=== PATIENT | male | born 1945 | race Caucasian/White ===

== ENCOUNTER 2020-09-19 13:42 | Outpatient (REF) | payer MEDICARE, SELFPAY ==
--- NOTE | 2020-09-19 15:34 | MHC.AU.HAS ---
Hearing Aid Evaluation Date of Visit: 09/19/20 Historical Information: Description of Hearing: Normal hearing from 250-2000 Hz, steeply sloping to a mild to severe sensorineural hearing loss from 6761-5043 Hz bilaterally. Very bothersome tinnitus bilaterally. Summary: Patient was seen by Dr. Boo on 09/09/2020 and binaural amplification was recommended to facilitate improved communication and provide tinnitus relief. Discussed options with Mr. Gonzalez today and he is interested in ALYSIA style hearing aids with standard batteries. Hearing Aid Prescription: Based on the individual?s shared listening needs, communication environments, dexterity, desire for connectivity, and personal preferences, the following prescription for amplification has been made: Right ear: Hydraulic Plumber Helper: Phonak Model: Audeo P70-13T Battery Size: 13 Color: P5- Champagne Microfilm Technician: Size 0 M Type of Dome: Open Left ear: Left ear prescription to be same as Right Hearing Aid above: Hydraulic Plumber Helper: Phonak Model: Audeo P70-13T Battery Size: 13 Color: P5- Champagne Microfilm Technician: Size 0 M Type of Dome: Open Plan of Care: Prior authorization to be requested from [facility]. Hearing Fitting to be scheduled when materials arrive Primary Diagnosis: H90.3 Bilateral Sensorineural Hearing Loss Secondary Diagnosis: H93.13 Tinnitus, Bilateral Signature: Provider: Gustavo Slater, ALFONSO-A
== END 2020-09-19 13:43 | disposition home or self-care (01) ==
LOC: HO.HAP 13:42
PROVIDERS: Visit Provider Internal Medicine Pulmonary Disease
DX: Z46.1 Encounter for fitting and adjustment of hearing aid (principal); H90.3 Sensorineural hearing loss, bilateral; H93.13 Tinnitus, bilateral
CPT/HCPCS: 92591

== ENCOUNTER 2020-10-29 13:49 | Outpatient (REF) | payer MEDICARE, SELFPAY | END 2020-10-29 13:50 | disposition home or self-care (01) | LOC: HO.HAP 13:49 | PROVIDERS: Visit Provider Internal Medicine Pulmonary Disease | DX: Z46.1 Encounter for fitting and adjustment of hearing aid (principal); H90.3 Sensorineural hearing loss, bilateral | CPT/HCPCS: V5011; V5020; V5160; V5261; V5266 ==

== ENCOUNTER 2020-11-14 13:52 | Outpatient (REF) | payer MEDICARE, SELFPAY | END 2020-11-14 13:53 | disposition home or self-care (01) | LOC: HO.HAP 13:52 | PROVIDERS: Visit Provider Internal Medicine Pulmonary Disease | DX: Z13.89 Encounter for screening for other disorder (principal) ==

== ENCOUNTER 2021-03-25 12:22 | Outpatient (REF) | payer MEDICARE, SELFPAY | END 2021-03-25 12:23 | disposition home or self-care (01) | LOC: HO.HAP 12:22 | PROVIDERS: Visit Provider Internal Medicine Pulmonary Disease | DX: Z46.1 Encounter for fitting and adjustment of hearing aid (principal); H90.3 Sensorineural hearing loss, bilateral | CPT/HCPCS: V5266 ==

== ENCOUNTER 2021-04-07 09:35 | Outpatient (REF) | payer MEDICARE, SELFPAY ==
--- NOTE | 2021-04-07 09:55 | MHC.AU.P13 ---
Hearing Instrument Maintenance Date of Visit: 04/07/21 Right Ear: Grooving Lathe Tender: Phonak Model: Audeo P70-13T Serial Number: [id number] Repair Warranty: 12/30/2023 Loss and Damage Warranty: 12/30/2023 Battery Size: 13 Color: P5- Champagne Gifted Teacher: Size 0 M Type of Dome: Small open Type of Wax Guard: Cerushield Dispensed By: [facility] Date of Fittin10/29/2020 Left Ear: Grooving Lathe Tender: Phonak Model: Audeo P70-13T Serial Number: [id number] Repair Warranty: 12/30/2023 Loss and Damage Warranty: 12/30/2023 Battery Size: 13 Color: P5- Champagne Gifted Teacher: Size 0 M Type of Dome: Small open Type of Wax Guard: Cerushield Dispensed By: [facility] Date of Fittin10/29/2020 Follow-Up Summary: Hearing aids dropped off for cleaning. Cleaned aids and replaced small open domes, wax filters, and retention tails - both amplifying clearly. Recommendations: Recommendations: Hearing instrument follow-up or maintenance as needed. Diagnosis Code(s): Primary Diagnosis: H90.3 Bilateral Sensorineural Hearing Loss Signature: Provider: ALESSANDRO Kohler-HIS
== END 2021-04-07 09:36 | disposition home or self-care (01) ==
LOC: HO.HAP 09:35
PROVIDERS: PCP Internal Medicine; Visit Provider Internal Medicine
DX: Z13.89 Encounter for screening for other disorder (principal)

== ENCOUNTER 2024-08-08 12:59 | Outpatient (AMB) | payer MEDICARE, SELFPAY ==
--- NOTE | 2024-08-08 13:20 | MHC.PC.OV ---
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 Dermatopathologist Required: No Allergies No Known Allergies Allergy (Unverified 08/08/24 13:31) Medication List - Last Reconciled 08/08/24 by Sindi Romero, SENIOR JAVASCRIPT DEVELOPER- alfuzosin ER mg PO DAILY finasteride mg PO DAILY omega 8-zno-tix-fish oil 300-1,000 mg (Fish Oil) caps PO Tobacco use date assessed: 08/08/24 Fall risk assessment: No Falls in past year Last assessed Fall Risk: 08/08/24 Dental Screening Dental Screen Date: 08/08/24 Did you have a dental visit in the last 12 months?: Yes Did you have a dental problem in the last 6 months where you did not have access to dental care?: No Was dental information given to patient?: Patient has dentist HPI HPI Comments History of Present Illness Details 79 y/o M with headaches, bruising, PTSD, hx of lymphoma, chronic low back pain s/p injury age 35, heart murmur, psoriasis, PVD, former smoker SurgHx: L inguinal hernia repair, R shoulder surgery, appendectomy FHx: Social History - Lives alone, frequently engages in outdoor activities including albin chi, walking, bicycling, canoeing, and weightlifting at the [facility]. 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 - Prior smoker, quit approximately 20 years ago. Health Maintenance: See scanned preventative medicine assessment with personalized health plan and screening schedule. Colon: Vaccines AAA screen EKG: [place] of Care: Visual Acuity: wears glasses Hearing Screening: wears hearing aides ACP: Dietary/Nutrition/Exercise Edu provided: Y History of Present Illness - The patient is a 79-year-old male presenting to establish [facility]. previous pcp: marisela ibarra - no records avail His medical history includes managing Benign Prostatic Hyperplasia with finasteride and alfuzosin He reports concern over easy bruising appearing for the past year, taking omega 3 fish oil, denies any anti-coag or antiplatlet meds. denies overt bleeding. infrequent, resolves on its own. Historically significant, the patient had lymphoma surgically removed and treated with radiation, now in longstanding remission. Unclear if he is active with heme/onc. c/o new onset of lightheadedness - unsure when it started. denies syncope, collapse, shortness of breath, chest pain. Physically active lifestyle, including albin chi and other exercises, this does not trigger his lightheadedness. Heart murmur known for more than 40 years - not managed by Cards Psoriasis managed without topical treatment due to concerns about wildlife interaction. Occasional headache, takes NSAIDs + relief. Review of Systems - Skin: Reports psoriasis, easy bruising - Neurological: Reports intermittent lightheadedness - Cardiovascular: Reports history of heart murmur - Musculoskeletal: Reports prior knee injury resulting in occasional stiffness and pain - General: Denies recent significant health decline, expresses preference for non-medicalized end-of-life Exam Awake alert NAD PERRLA 2/6 murmur, RRR LS CTAB No edema BLE Varicose veins ble Psoriasis R knee (reports R buttock but not seen today) Discussion Notes During the visit, we discussed the patient's predominant health concerns, including the recent onset of easy bruising and intermittent lightheadedness. I advised suspending omega-3 fish oil intake to determine its relation to bruising, due to its known property of increasing bleeding risk. We discussed conducting blood tests to evaluate hematological factors that might explain the bruising and lightheadedness. The patient agreed to this interim management plan while suspending unnecessary medication unless confirmed otherwise by records or test findings. For the heart murmur, the historical context suggests a benign course, but I look forward to reviewed medical records. We ensured follow-up for ongoing health optimization and addressed logistical aspects regarding health systems' access to previous records. Upon leaving he handed me lab results done 07/19/[address] Sp Marmolejo CBC was WNL including platelet count, normal CMP, TC 201, TG 183, LDL 138, HDL 63 and labs from 06/04/23 which show abut the same These were reviewed after he left and after i ordered the below labs. unsure why these were given to me when talking about his health concerns. Assessment and Plan 1. Benign Prostatic Hyperplasia: Ongoing finasteride & alfusozin treatment maintained; review for symptom management aligned with subsequent medical records. 2. History of Lymphoma: Stable in remission with earlier surgical and radiotherapy intervention. Current symptoms reviewed, with further analysis held contingent on laboratory data. 3. Easy Bruising: Informed omega-3 suspension initiated to observe possible impact on bleeding propensity. Immediate lab tests requested to assess hematological formula integrity. 4. Lightheadedness: Potential multi-factorial, linked to exertion. Lab assessment to screen for anemia or systemic cause anticipated results decidedly influent to further dialogue. 5. Psoriasis: Previous self-managed approach continued due to content medical requirements for topical treatment non-negotiable conflicts with wildlife hands-on care. 6. Heart Murmur: Historic murmur likely benign; existing data adequate pending supplementary diagnostics, none prioritised without emergent signs. Patient Instructions - Avoid taking omega-3 fish oil supplements until the next appointment. - Observe any changes in bruising and lightheadedness. - Prepare to have blood tests performed today. - Schedule return appointment in 2-3 weeks for results review and further discussion. - Maintain active lifestyle according to comfort levels. - Seek medical attention if new significant bruising, worsening lightheadedness, or other acute symptoms occur. Consent Patient was informed and verbally consented to the use of an ambient scribe for clinic note documentation during this visit. Total time spent caring for the patient today was 50 minutes. This includes time spent before the visit reviewing the chart, time spent during the visit, and time spent after the visit on documentation, reviewing laboratory results, diagnostic imaging, medications, performing a medically necessary evaluation, counseling on diagnoses, care coordination, ordering appropriate tests, ordering appropriate medications, review of tests performed by other providers, reporting test results with the patient, communication with other healthcare providers. [facility] Medical History (Updated 08/08/24 @ 15:09 by Sindi Romero, [facility]) Arthritis GERD (gastroesophageal reflux disease) Hernia Lymphoma Prostate troubles Psoriasis PTSD (post-traumatic stress disorder) Spine disorder Surgical History (Updated 08/08/24 @ 13:34 by Bria Frank MA) History of appendectomy History of carpal tunnel surgery Family History (Updated 08/08/24 @ 13:35 by Bria Frank MA) Father Substance abuse Maternal Grandfather Substance abuse Sister Substance abuse Mother Mental health disorder Social History (Updated 08/08/24 @ 13:27 by Bria Frank MA) Household Members: None Housing: Other (mobile home) Housing Other:: mobile home Are you a primary skin care instructor to a significant other at home: No Do you presently have visiting nurse or other home services: Yes (once a year) Alcohol intake: current Alcohol intake frequency: a few times a month Patient Tobacco Use Status: Never used Tobacco e-Cigarette/Vaping Use: Never Used Second Hand Smoke Exposure: No service: No Current occupational status: retired Cognitive needs: No Hearing needs: Yes (hearing aid) Vision needs: Yes (wear glasses) Questionnaire PHQ-9 Over the last 2 weeks, how often have you been bothered by any of the following problems? 1. Little interest or pleasure in doing things: not at all 2. Feeling down, depressed, or hopeless: several days 3. Trouble falling or staying asleep, or sleeping too much: not at all 4. Feeling tired or having little energy: several days 5. Poor appetite or overeating: not at all 6. Feeling bad about yourself - or that you are a failure or have let yourself or your family down: several days 7. Trouble concentrating on things, such as reading the newspaper or watching television: not at all 8. Moving or speaking so slowly that other people could have noticed. Or the opposite - being so fidgety or restless that you have been moving around a lot more than usual: not at all 9. Thoughts that you would be better off or of hurting yourself in some way: not at all Total score: 3 Depression Screening Interpretation: Negative Depression Screening Done: Yes 10134 - PHQ-9 Billing: Yes Source: Developed by Drs. Sp Rodriguez, Kelsey Goins, Zion Hilario and colleagues, with an educational alfred from [employer]. Thrive Questionnaire Date Thrive assessed: 08/08/24 I am a: Patient What is your living situation today?: I have a steady place to live Within the past 12 months, did the food you bought not last and you didn't have the money to get more?: Never true Within the past 12 months, did you worry whether your food would run out before you got money to buy more?: Never true Do you have trouble paying for medicines?: No Do you have trouble getting transportation to medical appointments?: No Do you have trouble paying your heating and electricity bill?: No Do you have trouble taking care of your child, family member or friend?: No Do you have trouble with day-to-day activities such as bathing, preparing meals, shopping, managing finances, etc.?: No Are you currently unemployed and looking for a job?: I choose not to answer this question Are you interested in more education?: No Please select the resources that you would like help with: None Currently or been in a relationship where the following occur: Controlled Emotionally THRIVE Score: 1 AUDIT C Alcohol Use Questionnaire (AUDIT-C) 1. How often do you have a drink containing alcohol?: Never 3. How often do you have six or more drinks on one occasion?: Never Total Score: 0 Score Reviewed/Action Taken: Yes NISHANT-7 AMB Questionnaire NISHANT-7 Date NISHANT - 7 assessed: 08/08/24 Feeling nervous, anxious, or on edge: 1 = Several days Not being able to stop or control worryin = Several days Worrying too much about different things: 1 = Several days Trouble relaxin = Several days Being so restless that it is hard to sit still: 1 = Several days Becoming easily annoyed or irritable: 0 = Not at all Feeling afraid as if something awful might happen: 1 = Several days Total NISHANT-7 score (0-4 normal; 5-9 mild; 10-14 moderate; 15-21 severe): 6 Source: Developed by Drs. Sp Rodriguez, Kelsey Goins, Zion Hilario and colleagues, with an educational alfred from [employer]. NISHANT-7 Assessment Billing NISHANT-7 Assessment Tool: NISHANT-7 Assessment 68506 Physical exam (Primary Care) Vital Signs: Last Vital Signs Temp 96.9 F 08/08/24 13:27 Pulse 55 08/08/24 13:27 Resp 12 08/08/24 13:27 BP 117/66 08/08/24 13:27 Pulse Ox 96 08/08/24 13:27 Oxygen Delivery Method Room Air 08/08/24 13:27 BMI result Body Mass Index 28.3 Tobacco/Smoking Status: Tobacco use Status Tobacco use date assessed 08/08/24 08/08/24 13:29 Patient Tobacco Use Status Never used Tobacco 08/08/24 13:29 e-Cigarette/Vaping Use Never Used 08/08/24 13:29 PHQ-9: PHQ-9 Score PHQ-9: Total score 3 08/08/24 13:31 Depression Screening Interpretation: Negative Thrive Assessment: Date of Thrive Assessment Date Thrive assessed 08/08/24 08/08/24 13:24 Currently or been in a relationship where the following occur: Controlled Emotionally Coding Level of Care Code New Pt Level 4 (94177) Complex EM visit Add On G2211 Diagnoses Encounter to establish care Z76.89 Frequent headaches R51.9 Easy bruising R23.3 Lightheadedness R42 Hx of lymphoma Z85.72 BPH (benign prostatic hyperplasia) N40.0 Heart murmur on physical examination R01.1 Additional Codes NISHANT-7 Assessment Billing - NISHANT-7 Assessment Tool: NISHANT-7 Assessment 64436 ([id number]) PHQ-9 - 78314 - PHQ-9 Billing: Yes ([id number]) Assessment & Plan Assessment & Plan (1) Encounter to establish care: Code(s): Z76.89 - Persons encountering health services in other specified circumstances (2) Frequent headaches: Code(s): R51.9 - Headache, unspecified Category: Medical (3) Easy bruising: Code(s): R23.3 - Spontaneous ecchymoses Category: Medical (4) Lightheadedness: Code(s): R42 - Dizziness and giddiness Category: Medical (5) Hx of lymphoma: Code(s): Z85.72 - Personal history of non-Hodgkin lymphomas Category: Medical (6) BPH (benign prostatic hyperplasia): Code(s): N40.0 - Benign prostatic hyperplasia without lower urinary tract symptoms Category: Medical (7) Heart murmur on physical examination: Code(s): R01.1 - Cardiac murmur, unspecified Category: Medical Plan . Orders: Orders Hemoglobin A1c Today R23.3 - Spontaneous ecchymoses, R42 - Dizziness and giddiness, R51.9 - Headache, unspecified IRON PROFILE Today R23.3 - Spontaneous ecchymoses, R42 - Dizziness and giddiness, R51.9 - Headache, unspecified Lipid Panel Today R23.3 - Spontaneous ecchymoses, R42 - Dizziness and giddiness, R51.9 - Headache, unspecified Prothrombin Time INR Today R23.3 - Spontaneous ecchymoses, R42 - Dizziness and giddiness, R51.9 - Headache, unspecified Complete Blood Count no Diff Today R23.3 - Spontaneous ecchymoses, R42 - Dizziness and giddiness, R51.9 - Headache, unspecified Comprehensive Met. Panel Today R23.3 - Spontaneous ecchymoses, R42 - Dizziness and giddiness, R51.9 - Headache, unspecified Microalbumin, Random (w Creat) Today R23.3 - Spontaneous ecchymoses, R42 - Dizziness and giddiness, R51.9 - Headache, unspecified TSH reflex Free T4 Today R23.3 - Spontaneous ecchymoses, R42 - Dizziness and giddiness, R51.9 - Headache, unspecified Vitamin B12 and Folate Today R23.3 - Spontaneous ecchymoses, R42 - Dizziness and giddiness, R51.9 - Headache, unspecified Vitamin D 25-OH Total Today R23.3 - Spontaneous ecchymoses, R42 - Dizziness and giddiness, R51.9 - Headache, unspecified Patient Instructions: Walk-In Care (Urgent Care): We Make it Easy Walk-in for urgent medical issues such as: ? Seasonal Allergies ? Insect Bites ? Cough ? Diarrhea ? Acute Asthma Attacks ? Back, Knee or Joint Pain ? Ear Infection ? Fever without a Rash ? Headaches ? Nausea ? [place], Rash or Skin Irritation ? Sore Throat ? Sports Physicals ? Vomiting Most insurances are accepted. Patients do not need to be part of the [facility] to seek care at the walk-in clinic. Locations [facility] [address], [place] [address] ? [phone] [facility] in [place] provides services to ages 18 and over. Open Wednesday-Wednesday: 8 a.m. to 5 p.m. and Wednesday: 9 a.m. to 3 p.m.* *Hours may vary due to staffing availability. To confirm Walk-In Care hours in [place], please call [phone]. [address] [facility], [place] [address] ? [phone] [facility]In [facility] in [place] provides services to ages 12 and over. Open Wednesday-Wednesday: 8 a.m. to 5 p.m. Hours may vary due to staffing availability. To confirm Walk-In Care hours in [place], please call [phone]. LABORATORY SERVICES: [facility] ? Primary Location [address] [place] [address] Wednesday through Wednesday 6:00 AM ? 5:00 PM Wednesday 7:00 AM ? 11:00 AM* [phone] The [facility] is centrally located near the front entrance of the [facility] for easy outpatient access. Convenient parking is provided for outpatients. *Hours may vary due to staffing availability. To confirm Laboratory hours for any location, please call [phone]. Offsite Location For your convenience, we offer offsite laboratory draw stations at the following locations: [address] [place] [address] ? [address], [address] Wednesday through Wednesday 7:30 AM ? 1:00 PM* [phone] *Hours may vary due to staffing availability. To confirm Laboratory hours for any location, please call [phone]. [place] ? [address] Wednesday through Wednesday 6:00 AM ? 3:30 PM* Wednesday 6:30 AM ? 3 PM* [phone] *Hours may vary due to staffing availability. To confirm Laboratory hours for any location, please call [phone] [place] [address] Wednesday through Wednesday 7:30 AM ? 4:00 PM* [phone] *Hours may vary due to staffing availability. To confirm Laboratory hours for any location, please call [phone] [place] [address] Wednesday through 9:00 AM ? 4:00 PM* *Hours may vary due to staffing availability. To confirm Laboratory hours for any location, please call [phone]. Appointments are not necessary. Walk-ins are welcome. Like all the departments throughout the [facility], our Lab undergoes frequent reviews to ensure the quality and accuracy of test results, and our staff takes special pride in its status as a nationally accredited facility. Patient Portal: ONE PATIENT. ONE RECORD. BETTER CARE. [facility] has a fully integrated, cutting-edge mobile electronic health information system that has revolutionized the way we care for our patients and manage our organization. This system improves communication and coordination enabling us to provide safe, higher-quality care, and an overall positive experience for staff and patients. Our first priority, as always, is to deliver the highest quality care possible. The system is running in the background supporting that priority. This portal is for all [facility] services and practices. If you are experiencing any technical difficulties with enrolling or logging into the Patient Portal please complete the [facility] Patient Portal Technical Support Form. [facility] now offers a new secure on-line interactive tool for patients to review their health information ? ?Patient Portal. This interactive web portal will enable patients and their families to take an active role in their care by providing easy, secure access to their health information via the internet. The Patient Portal provides patients with instant access to their health information, including laboratory results, medications, allergies, demographic information, visit history, and more. In addition to managing their own care, parents and health care proxies with authorized consent will appreciate the ability to access the records of those individuals for whom they provide care. Please note: if you wish to gain access (Proxy) to another patient?s portal, you will be required to come to the Medical Records Department in person at [facility]. Both the patient giving proxy access and the proxy will need to provide photo identification and complete the appropriate authorization. The Patient Portal also allows track their appointments online. The [facility] Patient Portal also saves patients time by allowing them to submit updates to their demographic and contact information prior to their visits. Portal email notifications will also alert patients to any new activity on their portal, such as test results and new appointments. In order to initially enroll in the [facility] Patient Portal, you will need to enter some required information including the following: your [facility] Medical Record number your personal home email address name date of Please note: In order to enroll in the [facility] Patient Portal, we need to have your email address on file in your electronic medical record. ?The email address needs to be specific for one person (yourself) in order for your Portal enrollment to be successful. ?You can update your email address in person with our Registration staff when you are registering for a hospital visit. ?Otherwise, you will need to come to the Health Information Management (Medical Records) Department at [facility]. ?We are open from Wednesday ? Wednesday from 7:30 a.m. ? 4:30 p.m. ?You will be required to present a photo id. Once you have successfully enrolled in the Patient Portal, you will receive a one-time user id and password for the Portal, sent to your email address. ?This will allow you to log into the Patient Portal within 99 hrs and reset your own logon id and password, and define personal security questions. ?Once your permanent login and password have been set, you can log into the [facility] Patient Portal at any time via the blue button above or from the Portal Logon button on any page of the [facility] website. [facility] and [facility] encourage all of our patients to enroll in Patient Portal as it presents a valuable opportunity for patients and their families to actively participate in their care and stay healthy Welcome to [facility]. ?We look forward to working with you.
[2024-08-08 13:27] VITALS: BP 117/66; PULSE 55; RESP 12; TEMP 36.1; O2SAT 96; BMI 28.3
== END 2024-08-08 14:04 | disposition home or self-care (01) ==
LOC: HO.HMCFM 12:59
PROVIDERS: PCP Nurse Practitioner Family; Visit Provider Nurse Practitioner Family
DX: Z76.89 Persons encountering health services in other specified circumstances (principal); R51.9 Headache, unspecified; R23.3 Spontaneous ecchymoses; R42 Dizziness and giddiness; Z85.72 Personal history of non-Hodgkin lymphomas; N40.0 Benign prostatic hyperplasia without lower urinary tract symptoms; R01.1 Cardiac murmur, unspecified

== ENCOUNTER 2024-08-08 14:15 | Outpatient (REF) | payer OTHER, SELFPAY ==
[2024-08-08 18:38] LABS: Hematocrit 42.6 % (42.0-52.0); Hemoglobin 14.1 g/dl (14.0-18.0); Mean Corpuscular HGB Conc 33.1 g/dl (31.0-36.0); Mean Corpuscular Hemoglobin 29.7 pg (27.0-33.0); Mean Corpuscular Volume 89.9 fL (80.0-98.0); Mean Platelet Volume 9.7 fL (9.4-12.4); Platelet Count 199 X10*3/uL (160-400); Red Blood Count 4.74 X10*6/uL (4.60-5.80); Red Cell Distribution Width 13.1 % (11.0-16.0); White Blood Count 4.7 X10*3/uL (4.8-10.8)
[2024-08-08 18:50] LABS: Prothrombin Time 11.1 SEC (10.9-12.4)
[2024-08-08 19:08] LABS: Creatinine Urine 214.78 mg/dL; Microalbum/Creatinine Ratio Ur 57.2 ug/mg cr (<30)
[2024-08-08 19:24] LABS: Alanine Aminotransferase 28 U/L (0-40); Albumin Level 4.3 g/dL (3.5-5.0); Alkaline Phosphatase 89 U/L (39-117); Anion Gap 11 (12-20); Aspartate Amino Transferase 31 U/L (5-37); Bilirubin Total 0.6 mg/dL (0.0-1.0); Blood Urea Nitrogen 24 mg/dL (9-16); Calcium 9.8 mg/dL (8.4-10.2); Carbon Dioxide 30 mmol/L (22-29); Chloride 106 mmol/L (96-108); Cholesterol 192 mg/dL (<200); Estimated Glomerular Filt Rate > 60; Glucose Random 76 mg/dL (60-115); HDL Cholesterol 57 mg/dL (>40); Iron 95 mcg/dL (45-160); LDL Cholesterol Calculated 110 mg/dL (<100); Percent Iron Saturation 31 % (15-50); Potassium 4.6 mmol/L (3.3-5.1); Sodium 142 mmol/L (135-145); Total Iron Binding Capacity 306 mcg/dL (228-428); Total Protein 8.2 g/dL (6.5-8.0); Triglycerides 126 mg/dL (<150); Unsaturated Iron Binding 211 ug/dL
[2024-08-08 19:42] LABS: Vitamin D 25-OH Total 66.4 ng/mL (>30)
[2024-08-08 19:53] LABS: Folate 15.3 ng/mL (> or = 4.0); Vitamin B12 802 pg/mL (200-900)
[2024-08-09 06:25] LABS: Estimated Average Glucose 117 mg/dL; Hemoglobin A1c % 5.7 % (<6.0)
== END 2024-08-08 14:16 | disposition home or self-care (01) ==
LOC: HO.WFDLDS 14:15
PROVIDERS: Visit Provider Nurse Practitioner Family
DX: R23.3 Spontaneous ecchymoses (principal); R51.9 Headache, unspecified; R42 Dizziness and giddiness; N40.0 Benign prostatic hyperplasia without lower urinary tract symptoms; Z76.89 Persons encountering health services in other specified circumstances; R23.2 Flushing; Z85.72 Personal history of non-Hodgkin lymphomas; R00.1 Bradycardia, unspecified; Z13.6 Encounter for screening for cardiovascular disorders; Z13.1 Encounter for screening for diabetes mellitus
CPT/HCPCS: 36415; 80053; 80061; 82043; 82306; 82570; 82607; 82746; 83036; 83540; 84443; 85027; 85610; 96127; 99202

== ENCOUNTER 2024-09-05 12:03 | Outpatient (AMB) | payer MEDICARE, SELFPAY ==
--- NOTE | 2024-09-05 12:39 | A.OFFPC_ITS ---
Vital Signs 09/05/24 12:42 Height 5 ft 10 in Weight 196 lb 8 oz BMI 28.2 BP 102/70 Blood Pressure Location Rt brachial Respiration 12 Pulse 54 Pulse Source Pulse Oximeter Temp 97.6 F Temp Source Oral Pulse Oximetry (%) 96 Oxygen Delivery Method Room Air Intake Visit Reasons: PAPERWORK Intake Note: Patient is here for paperwork to be filled out Supervisor Dental Laboratory Required: No Allergies No Known Allergies Allergy (Verified 09/05/24 13:06) Medication List - Last Reconciled 09/05/24 by Sindi Romero, [facility]- alfuzosin ER mg PO DAILY finasteride mg PO DAILY omega 7-bgp-cln-fish oil 300-1,000 mg (Fish Oil) caps PO Tobacco use date assessed: 09/05/24 Fall risk assessment: No Falls in past year Last assessed Fall Risk: 09/05/24 Dental Screening Dental Screen Date: 09/05/24 Did you have a dental visit in the last 12 months?: Yes Did you have a dental problem in the last 6 months where you did not have access to dental care?: No Was dental information given to patient?: Patient has dentist HPI HPI Comments History of Present Illness Details 79 y/o M with headaches, bruising, PTSD, hx of lymphoma, chronic low back pain s/p injury age 35, heart murmur, psoriasis, PVD, former smoker SurgHx: L inguinal hernia repair, R shoulder surgery, appendectomy FHx: Social History - Lives alone, frequently engages in out door activities including albin chi, walking, bicycling, canoeing, and weightlifting at the [facility]. 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 - Prior smoker, quit approximately 20 ye ars ago. Health Maintenance: Colon: colon FIT test negative 06/01/23 Vaccines: PCV 20 2023,PCV 2022, flu 2023, RSV 2023, shingles UTD, AAA screen: EKG: [facility]: Urology Dr Mike Ortho - Dr Enrique and Dr [facility] Visual Acuity: wears glasses Hearing Screening: wears hearing aides ACP: HCP and MOLST completed today Dietary/Nutrition/Exercise Edu provided: Y Here today to complete healthcare proxy and MOLST form. He has a healthcare proxy with a total of 3 people named today. This form was witnessed and scanned into the chart. he has a MOLST completed, date of 2022, we will code, no intubation, noninvasive airway okay, short-term use of hydration, nutrition in dialysis okay. Patient agrees to these interventions today. The MOLST was scanned into his chart today. No longer having any bruising. Stopped taking the fish oil as directed. He reports that he was using this to help his knee pain which has become worse since stopping the fish oil however it is tolerable. I reviewed with him the labs as below. He continues to complain of intermittent dizzy spells. He had 1 on August 31 which lasted 30 seconds. He reports that this was the worse when he is having some time. He denies any other symptoms. We discussed the role of vestibular therapy. At this time he declined. He wishes to take a more natural treatment plan to include kayaking, walking, biking. Results Labs 08/08/24 a1c 5.7, LDL > 100 urine microalbum > 50, otherwise normal labs Exam Awake alert NAD PERRLA 2/6 murmur, RRR LS CTAB No edema BLE Varicose veins ble Psoriasis R knee (reports R buttock but not seen today) A&P Healthcare proxy and MOLST updated and scanned into the chart today. No more bruising now that he was off the fish oil. Advised to stay off and to continue to monitor for bruising. Declined vestibular therapy for the dizziness. Fall risk education provided. We would like to be seen in the office every 2 months. Consent Patient was informed and verbally consented to the use of an ambient scribe for clinic note documentation during this visit. Total time spent caring for the patient today was 30 minutes. This includes time spent before the visit reviewing the chart, time spent during the visit, and time spent after the visit on documentation, reviewing laboratory results, diagnostic imaging, medications, performing a medically necessary evaluation, counseling on diagnoses, care coordination, ordering appropriate tests, ordering appropriate medications, review of tests performed by other providers, reporting test results with the patient, communication with other healthcare providers. [facility] Medical History (Updated 09/05/24 @ 13:17 by Sindi Romero, [employer]-) Arthritis GERD (gastroesophageal reflux disease) Hernia Lymphoma Prostate troubles Psoriasis PTSD (post-traumatic stress disorder) Spine disorder Surgical History (Updated 08/08/24 @ 13:34 by Bria Frank MA) History of appendectomy History of carpal tunnel surgery Family History (Updated 08/08/24 @ 13:35 by Bria Frank MA) Father Substance abuse Maternal Grandfather Substance abuse Sister Substance abuse Mother Mental health disorder Social History (Updated 08/08/24 @ 13:27 by Bria Frank MA) Household Members: None Both parents involved: No Caregiver staying overnight: No Housing: Other (mobile home) Housing Other:: mobile home Are you a primary primary care pediatrician to a significant other at home: No Do you presently have visiting nurse or other home services: Yes (once a year) 75 years or older and lives alone: No Alcohol intake: current Alcohol intake frequency: a few times a month Patient Tobacco Use Status: Never used Tobacco e-Cigarette/Vaping Use: Never Used Second Hand Smoke Exposure: No service: No Current occupational status: retired Cognitive needs: No Hearing needs: Yes (hearing aid) Vision needs: Yes (wear glasses) Questionnaire PHQ-9 Over the last 2 weeks, how often have you been bothered by any of the following problems? 1. Little interest or pleasure in doing things: not at all 2. Feeling down, depressed, or hopeless: not at all 3. Trouble falling or staying asleep, or sleeping too much: not at all 4. Feeling tired or having little energy: not at all 5. Poor appetite or overeating: not at all 6. Feeling bad about yourself - or that you are a failure or have let yourself or your family down: not at all 7. Trouble concentrating on things, such as reading the newspaper or watching television: not at all 8. Moving or speaking so slowly that other people could have noticed. Or the opposite - being so fidgety or restless that you have been moving around a lot more than usual: not at all 9. Thoughts that you would be better off or of hurting yourself in some way: not at all Total score: 0 Depression Screening Interpretation: Negative Depression Screening Done: Yes 77519 - PHQ-9 Billing: Yes Source: Developed by Drs. Sp Rodriguez, Kelsey Goins, Zion Hilario and colleagues, with an educational alfred from [employer]. Thrive Questionnaire Date Thrive assessed: 09/05/24 I am a: Patient What is your living situation today?: I have a steady place to live Within the past 12 months, did the food you bought not last and you didn't have the money to get more?: Never true Within the past 12 months, did you worry whether your food would run out before you got money to buy more?: Never true Do you have trouble paying for medicines?: No Do you have trouble getting transportation to medical appointments?: No Do you have trouble paying your heating and electricity bill?: No Do you have trouble taking care of your child, family member or friend?: No Do you have trouble with day-to-day activities such as bathing, preparing meals, shopping, managing finances, etc.?: No Are you currently unemployed and looking for a job?: I choose not to answer this question Are you interested in more education?: No Please select the resources that you would like help with: None Currently or been in a relationship where the following occur: Controlled Emotionally THRIVE Score: 1 AUDIT C Alcohol Use Questionnaire (AUDIT-C) 1. How often do you have a drink containing alcohol?: Never 3. How often do you have six or more drinks on one occasion?: Never Total Score: 0 Score Reviewed/Action Taken: Yes NISHANT-7 AMB Questionnaire NISHANT-7 Date NISHANT - 7 assessed: 09/05/24 Feeling nervous, anxious, or on edge: 0 = Not at all Not being able to stop or control worryin = Not at all Worrying too much about different things: 0 = Not at all Trouble relaxin = Not at all Being so restless that it is hard to sit still: 0 = Not at all Becoming easily annoyed or irritable: 0 = Not at all Feeling afraid as if something awful might happen: 0 = Not at all Total NISHANT-7 score (0-4 normal; 5-9 mild; 10-14 moderate; 15-21 severe): 0 Source: Developed by Drs. Sp Rodriguez, Kelsey Goins, Zion Hilario and colleagues, with an educational alfred from [employer]. NISHANT-7 Assessment Billing NISHANT-7 Assessment Tool: NISHANT-7 Assessment 96600 Physical exam (Primary Care) Vital Signs: Last Vital Signs Temp 97.6 F 09/05/24 12:42 Pulse 54 09/05/24 12:42 Resp 12 09/05/24 12:42 BP 102/70 09/05/24 12:42 Pulse Ox 96 09/05/24 12:42 Oxygen Delivery Method Room Air 09/05/24 12:42 BMI result Body Mass Index 28.2 Tobacco/Smoking Status: Tobacco use Status Tobacco use date assessed 09/05/24 09/05/24 12:41 Patient Tobacco Use Status Never used Tobacco 09/05/24 12:41 e-Cigarette/Vaping Use Never Used 09/05/24 12:41 PHQ-9: PHQ-9 Score PHQ-9: Total score 0 09/05/24 13:30 Depression Screening Interpretation: Negative Thrive Assessment: Date of Thrive Assessment Date Thrive assessed 09/05/24 09/05/24 12:41 Currently or been in a relationship where the following occur: Controlled Emotionally Office Procedures Advance Care Planning Advance Care Planning discussion: Completed/Scanned Date of discussion: 09/05/24 Who was present: self Forms completed: Health Care Proxy and MOLST Time spent: 1-15 minutes, on File Actual minutes spent: 10 Coding Level of Care Code Est Pt Level 4 (88062) Complex EM visit Add On G2211 Diagnoses ACP (advance care planning) Z71.89 Full code status Z78.9 Physician orders for life-sustaining treatment (POLST) form indicates patient wish for full code resuscitation status Z78.9 Encounter for brief counseling about health care proxy document Z71.89 Easy bruising R23.3 Lightheadedness R42 CPT Codes Advance Care Planning - Time spent: 1-15 minutes, on File ([id number]) Additional Codes NISHANT-7 Assessment Billing - NISHANT-7 Assessment Tool: NISHANT-7 Assessment 60546 ([id number]) PHQ-9 - 91019 - PHQ-9 Billing: Yes ([id number]) Assessment & Plan Assessment & Plan (1) ACP (advance care planning): Onset Date: ~08/2024 Code(s): Z71.89 - Other specified counseling Category: Medical (2) Full code status: Code(s): Z78.9 - Other specified health status Category: Medical (3) Physician orders for life-sustaining treatment (POLST) form indicates patient wish for full code resuscitation status: Onset Date: ~08/2024 Comment: completed 2022 scanned into chart today Full code, No intubation, but ok for non-invasive ventilation short term dialysis, hydration and nutrition Code(s): Z78.9 - Other specified health status Category: Medical (4) Encounter for brief counseling about health care proxy document: Code(s): Z71.89 - Other specified counseling Category: Medical (5) Easy bruising: Code(s): R23.3 - Spontaneous ecchymoses Category: Medical (6) Lightheadedness: Code(s): R42 - Dizziness and giddiness Category: Medical Plan .
[2024-09-05 12:42] VITALS: BP 102/70; PULSE 54; RESP 12; TEMP 36.4; O2SAT 96; BMI 28.2
== END 2024-09-05 13:30 | disposition home or self-care (01) ==
PROVIDERS: PCP Nurse Practitioner Family; Visit Provider Nurse Practitioner Family
DX: R23.3 Spontaneous ecchymoses (principal); Z71.89 Other specified counseling; R42 Dizziness and giddiness; Z78.9 Other specified health status; Z00.00 Encounter for general adult medical examination without abnormal findings

== ENCOUNTER → 2024-09-05 12:03 | Outpatient (BNVA) | payer MEDICARE, SELFPAY | PROVIDERS: PCP Nurse Practitioner Family; Visit Provider Nurse Practitioner Family | DX: M54.50 Low back pain, unspecified (principal); G89.29 Other chronic pain; L40.9 Psoriasis, unspecified; R23.3 Spontaneous ecchymoses; R42 Dizziness and giddiness; I73.9 Peripheral vascular disease, unspecified; Z87.891 Personal history of nicotine dependence; Z71.89 Other specified counseling; Z78.9 Other specified health status | CPT/HCPCS: 96127; 99212 ==

== ENCOUNTER 2024-10-31 13:27 | Outpatient (AMB) | payer MEDICARE, SELFPAY ==
--- NOTE | 2024-10-31 13:44 | MHC.PC.OV ---
Vital Signs 10/31/24 13:50 Height 5 ft 10 in Weight 190 lb BMI 27.3 BP 118/70 Blood Pressure Location Rt brachial Position Sitting Respiration 12 Pulse 58 Pulse Source Pulse Oximeter Temp 97.2 F Temp Source Oral Pulse Oximetry (%) 97 Oxygen Delivery Method Room Air Intake Visit Reasons: follow up exercise routine Intake Note: Follow up on exercise routine. Patient c/o right knee px, and patient is also having a test done in a week with urology. 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 Allergies No Known Allergies Allergy (Verified 10/31/24 14:11) Medication List - Last Reconciled 10/31/24 by Sindi Romero, SOLAR FABRICATION TECHNICIAN- alfuzosin ER mg PO DAILY finasteride mg PO DAILY Tobacco use date assessed: 10/31/24 Fall risk assessment: No Falls in past year Last assessed Fall Risk: 10/31/24 Dental Screening Dental Screen Date: 10/31/24 Did you have a dental visit in the last 12 months?: Yes Did you have a dental problem in the last 6 months where you did not have access to dental care?: No Was dental information given to patient?: Patient has dentist HPI HPI Comments History of Present Illness Details 79 y/o M with headaches, bruising, PTSD, hx of lymphoma, chronic low back pain s/p injury age 35, heart murmur, psoriasis, PVD, former smoker, macular degeneration, cataracts bilat SurgHx: L inguinal hernia repair, R shoulder surgery, appendectomy FHx: Social History - Lives alone, frequently engages in outdoor activities including albin chi, walking, bicycling, canoeing, and weightlifting at the [facility] [place]. 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 - Prior smoker, quit approximately 20 years ago. Health Maintenance: Colon: colon FIT test negative 06/01/23 Vaccines: PCV 20 2023,PCV 2022, flu 2023, RSV 2023, shingles UTD, AAA screen: EKG: [facility]: Urology Dr Mkie, appt a few weeks ago, will be getting testing done Ortho - Dr Enrique and Dr Elaine Optho appt next week declined treatment at this time Visual Acuity: wears glasses Hearing Screening: wears hearing aides ACP: HCP and MOLST completed today Dietary/Nutrition/Exercise Edu provided: Y History of Present Illness - The patient is a 79-year-old male presenting with a review of exercise routine and health concerns. - History of engaging in martial arts and weightlifting, with recent return to exercises. - Reports occasional lightheadedness, predominantly in the evening while sedentary, last time 08/2024. - Chronic knee pain from old injury, alleviated with continued movement and Advil use. Restarted Fish oil and is not getting bruising. - Elevated PSA levels with recent reading around 6; requires regular monitoring by Uro - Reports of hematuria twice in the past year with tissue-like material observed once. Uro will be doing a CT scan - Diagnosed with macular degeneration and cataracts, vision stable; hesitant about cataract surgery. Has fu with optho scheduled. Review of Systems - General: Reports feeling good and fit. - Cardiovascular: Denies lightheadedness during exercise; reports occasional sharp pain in the heart, ongoing for years w/ negative cardiac workup. Does not want any interventions at this time; only wants to mention this. Has pain on the left side of his face, very mild, self limiting, again occuring for years. Does not want work up. - Neurological: Reports episodes of lightheadedness in the evening. - Musculoskeletal: Reports knee pain with initial walking, improves with continued movement. - Genitourinary: Reports two episodes of hematuria in the past year. - Eyes: Reports macular degeneration and cataracts; vision currently stable. Exam Awake alert NAD PERRLA 2/6 murmur, RRR LS CTAB No edema BLE Varicose veins ble Psoriasis R knee (reports R buttock but not seen today) Results July 2024 - Labs: - A1c: 5.7 (normal) - Cholesterol: Fine overall, LDL slightly high but offset by high protective values. - PSA: Consistently high, recent reading around 6. - Tests and Diagnostics: - Vision evaluation confirms macular degeneration and cataracts. Discussion Notes During the visit, we discussed the patient's health concerns and management strategies. For exercise routine, I encouraged continued engagement with weightlifting and albin chi, acknowledging the benefits on overall health. The patient reported infrequent episodes of lightheadedness, primarily in the evening, which we will continue to monitor. Knee pain, managed with Advil occasionally & Fish oil, appears stable and exercises are advised as tolerated. PSA levels remain high; ongoing urological evaluation will address potential bladder concerns, particularly with noted hematuria. For vision concerns, the patient remains hesitant about cataract surgery; I recommended considering surgical options if sight significantly deteriorates. Recommendations included follow-up on urological and vision assessments, continuation of current exercise regimen, and periodic monitoring of blood work to ensure stable health metrics. Assessment and Plan 1. Exercise Routine - Continue weightlifting and albin chi. 2. Lightheadedness/chest pain/L face pain - Monitor for symptom progression. - Declinced cardiac work up at this time; has been done recently and WNL 3. Knee Pain, bilat, R>L - Maintain with Advil and Fish oil along w/ exercise. 4. High PSA Levels - Routine urology follow-ups. 5. Blood in Urine - Awaiting further urological evaluation. CT scan ordered 6. Macular Degeneration and Cataracts - Consider surgery if vision worsens. Patient Instructions - Continue weightlifting and albin chi as you can. - Use Advil if knee pain bothers you. - Follow up with urology for PSA and urine check. - Attend vision check-ups as scheduled. - Call us if lightheadedness happens more or any new symptoms start. RTO Sept with labs 1 week before, sooner PRN Consent Patient was informed and verbally consented to the use of an ambient scribe for clinic note documentation during this visit. Total time spent caring for the patient today was 45 minutes. This includes time spent before the visit reviewing the chart, time spent during the visit, and time spent after the visit on documentation, reviewing laboratory results, diagnostic imaging, medications, performing a medically necessary evaluation, counseling on diagnoses, care coordination, ordering appropriate tests, ordering appropriate medications, review of tests performed by other providers, reporting test results with the patient, communication with other healthcare providers. [facility] Medical History (Updated 10/31/24 @ 17:48 by SHARI Rodriguez) Arthritis GERD (gastroesophageal reflux disease) Hernia Lymphoma Prostate troubles Psoriasis PTSD (post-traumatic stress disorder) Spine disorder Surgical History (Updated 08/08/24 @ 13:34 by Bria Frank MA) History of appendectomy History of carpal tunnel surgery Family History (Updated 08/08/24 @ 13:35 by Bria Frank MA) Father Substance abuse Maternal Grandfather Substance abuse Sister Substance abuse Mother Mental health disorder Social History (Updated 08/08/24 @ 13:27 by Bria Frank MA) Household Members: None Both parents involved: No Caregiver staying overnight: No Housing: Other (mobile home) Housing Other:: mobile home Are you a primary eye care professional to a significant other at home: No Do you presently have visiting nurse or other home services: Yes (once a year) 75 years or older and lives alone: No Alcohol intake: current Alcohol intake frequency: a few times a month Patient Tobacco Use Status: Never used Tobacco e-Cigarette/Vaping Use: Never Used Second Hand Smoke Exposure: No service: No Current occupational status: retired Cognitive needs: No Hearing needs: Yes (hearing aid) Vision needs: Yes (wear glasses) Questionnaire Thrive Questionnaire Date Thrive assessed: 08/02/24 I am a: Patient What is your living situation today?: I have a steady place to live Within the past 12 months, did the food you bought not last and you didn't have the money to get more?: Never true Within the past 12 months, did you worry whether your food would run out before you got money to buy more?: Never true Do you have trouble paying for medicines?: No Do you have trouble getting transportation to medical appointments?: No Do you have trouble paying your heating and electricity bill?: No Do you have trouble taking care of your child, family member or friend?: No Do you have trouble with day-to-day activities such as bathing, preparing meals, shopping, managing finances, etc.?: No Are you currently unemployed and looking for a job?: I choose not to answer this question Are you interested in more education?: No Please select the resources that you would like help with: None Currently or been in a relationship where the following occur: Controlled Emotionally THRIVE Score: 1 NISHANT-7 AMB Questionnaire NISHANT-7 Date NISHANT - 7 assessed: 09/05/24 Source: Developed by Drs. Sp Rodriguez, Kelsey Goins, Zion Hilario and colleagues, with an educational alfred from [employer]. Physical exam (Primary Care) Vital Signs: Last Vital Signs Temp 97.2 F 10/31/24 13:50 Pulse 58 10/31/24 13:50 Resp 12 10/31/24 13:50 BP 118/70 10/31/24 13:50 Pulse Ox 97 10/31/24 13:50 Oxygen Delivery Method Room Air 10/31/24 13:50 BMI result Body Mass Index 27.3 Tobacco/Smoking Status: Tobacco use Status Tobacco use date assessed 10/31/24 10/31/24 13:47 Patient Tobacco Use Status Never used Tobacco 10/31/24 13:47 e-Cigarette/Vaping Use Never Used 10/31/24 13:47 Thrive Assessment: Date of Thrive Assessment Date Thrive assessed 08/02/24 10/31/24 13:47 Currently or been in a relationship where the following occur: Controlled Emotionally Coding Level of Care Code Est Pt Level 5 (42605) Complex EM visit Add On G2211 Diagnoses Lightheadedness R42 Benign prostatic hyperplasia without lower urinary tract symptoms N40.0 Lower urinary tract symptom presence: symptoms absent Easy bruising R23.3 Post-traumatic osteoarthritis of both knees M17.2 Osteoarthritis type: post-traumatic Asymptomatic microscopic hematuria R31.21 Hematuria type: asymptomatic microscopic Chest pain, unspecified type R07.9 Chest pain type: unspecified Left-sided face pain R51.9 Macular degeneration of both eyes, unspecified type H35.30 Macular degeneration type: unspecified type Eye laterality: bilateral Age-related cataract of both eyes, unspecified age-related cataract type H25.9 Cataract type: age-related Age-related cataract type: unspecified Assessment & Plan Assessment & Plan (1) Lightheadedness: Code(s): R42 - Dizziness and giddiness Category: Medical (2) BPH (benign prostatic hyperplasia): Comment: managed by Dr Mike Code(s): N40.0 - Benign prostatic hyperplasia without lower urinary tract symptoms Category: Medical Qualifiers: Lower urinary tract symptom presence: symptoms absent Qualified Code(s): N40.0 - Benign prostatic hyperplasia without lower urinary tract symptoms (3) Easy bruising: Code(s): R23.3 - Spontaneous ecchymoses Category: Medical (4) Osteoarthritis of knees, bilateral: Code(s): M17.0 - Bilateral primary osteoarthritis of knee Category: Medical Qualifiers: Osteoarthritis type: post-traumatic Qualified Code(s): M17.2 - Bilateral post-traumatic osteoarthritis of knee (5) Hematuria: Comment: x 2, CT scan to be done next week by Urology Code(s): R31.9 - Hematuria, unspecified Category: Medical Qualifiers: Hematuria type: asymptomatic microscopic Qualified Code(s): R31.21 - Asymptomatic microscopic hematuria (6) Chest pain: Code(s): R07.9 - Chest pain, unspecified Category: Medical Qualifiers: Chest pain type: unspecified Qualified Code(s): R07.9 - Chest pain, unspecified (7) Left-sided face pain: Code(s): R51.9 - Headache, unspecified Category: Medical (8) Macular degeneration: Code(s): H35.30 - Unspecified macular degeneration Category: Medical Qualifiers: Macular degeneration type: unspecified type Eye laterality: bilateral Qualified Code(s): H35.30 - Unspecified macular degeneration (9) Cataracts, bilateral: Code(s): H26.9 - Unspecified cataract Category: Medical Qualifiers: Cataract type: age-related Age-related cataract type: unspecified Qualified Code(s): H25.9 - Unspecified age-related cataract Plan . Orders: Orders Lipid Panel 01/29/25 R07.9 - Chest pain, unspecified, R23.3 - Spontaneous ecchymoses, R42 - Dizziness and giddiness, R51.9 - Headache, unspecified Comprehensive Met. Panel 01/29/25 R07.9 - Chest pain, unspecified, R23.3 - Spontaneous ecchymoses, R42 - Dizziness and giddiness, R51.9 - Headache, unspecified Complete Blood Count no Diff 01/29/25 R07.9 - Chest pain, unspecified, R23.3 - Spontaneous ecchymoses, R42 - Dizziness and giddiness, R51.9 - Headache, unspecified Vitamin B12 and Folate 01/29/25 R07.9 - Chest pain, unspecified, R23.3 - Spontaneous ecchymoses, R42 - Dizziness and giddiness, R51.9 - Headache, unspecified Medications: New [PRESERVISION] PO
[2024-10-31 13:50] VITALS: BP 118/70; PULSE 58; RESP 12; TEMP 36.2; O2SAT 97; BMI 27.3
--- OUTSIDE RECORDS SUMMARY | 2024-10-31 15:06 | XMS_ITS | Clinical Summary ---
Author Organization [address] [facility] Address [address] [place] [address] Phone Care Team Providers Care Western Philosophy Professor Name Role Phone Physician, Pcp Unknown Primary Care Provider Kimberly vailable Encounters Date Type Department Care Team Description 10/12/2024 Lab Requisition [facility] - Main Lab [address] [facility] [place] [place] [address] Vlad Mike MD Gross hematuria from Last 3 Months Social History Tobacco Use Types Packs/Day Years Used Date Smoking Tobacco: Former Smokeless Tobacco: Never Sex and Gender Information Value Date Recorded Sex Assigned at Not on file Legal Sex Male 10:15 AM EST Gender Identity Not on file Sexual Orientation Not on file Obstetrics History Plan of Treatment Health Maintenance Due Date Last Done Comments COVID-19 Vaccine (#1) 01/26/1950 DTaP,Tdap,and Td Vaccines (1 - Tdap) 1966 Pneumococcal Vaccine: 50+ Ye ars (1 of 1 - PCV) 1997 Zoster Vaccines (1 of 2) 1997 RSV Immunization Adult Patie nts (1 - 1-dose 75+ series) 2022 Cholesterol Screening (Lipid Panel) 10/12/2024 Depression Screening 10/12/2024 Falls Risk Assessment 10/12/2024 Hepatitis C Screening 10/12/2024 Social Influencers of Health Screening 10/12/2024 Influenza Vaccine (Season Ended) 2025 HIB Vaccines Aged Out No longer eligi ble based on patient's age to complete this topic HPV Vaccines Aged Out No longer eligi ble based on patient's age to complete this topic Hepatitis A Vaccines Aged Out No long er eligible based on patient's age to complete this topic Hepatitis B Vaccines Aged Out No long er eligible based on patient's age to complete this topic IPV Vaccines Aged Out No longer eligi ble based on patient's age to complete this topic MMR Vaccines Aged Out No longer eligi ble based on patient's age to complete this topic Meningococcal ACWY Vaccine Aged Out N o longer eligible based on patient's age to complete this topic Meningococcal B Vaccine Aged Out No l onger eligible based on patient's age to complete this topic RSV Immunization Patients Un marin 20 months Aged Out No longer eligible b ased on patient's age to complete this topic Varicella Vaccines Aged Out No longer eligible based on patient's age to complete this topic Procedures Procedure Name Priority Date/Time Associated Diagnosis Comments AP OUTSIDE CONSULT Routine 10/09/2024 12 :00 AM EDT Gross hematuria from Last 3 Months Results * Anatomic pathology outside consult (10/09/2024 12:00 AM EDT) Final Diagnosis A. Urine, Voided, ([id number]): Negative for high grade urothelial carcinoma. Acute inflammatory cells are present. Results of UroVysion fluorescence in situ hybridization (FISH) testing: Although FISH was performed, insufficient non-obscured hybridization signals are present for evaluation and interpretation. 10/25/2024 2:31 PM EDT [facility] Clinical Information Gross hematuria R31.0 Urine Cytology/FISH (now) 10/25/2024 2:31 PM EDT [facility] Gross Description A. Urine, Voided, ([id number]): Received one ThinPrep slide for cytology and one ThinPrep slide for UroVysion FISH 10/25/2024 2:31 PM EDT [facility] Disclaimer Unless otherwise specified, all tissue is 10% NB formalin fixed and paraffin embedded. Technical pathology services provided by [facility] at [address] [place] [address] [address], [place] [address] (CLIA #[id number]/Anca Burgos MD, Gas Engineer) 10/25/2024 2:31 PM EDT [facility] Tissue Urine specimen from urethra / Unknown 10/09/2024 10/12/2024 11:29 AM EDT us Vlad Mike MD LAB PATHOLOGY ORDERABLES Final Result [facility] [address] [place] [address], [place] [phone] from Last 3 Months Insurance [facility] MEDICAID Care Teams Western Philosophy Professor Relationship Specialty Start Date End Date Physician, Pcp Unknown PCP - General 10/12/24
== END 2024-10-31 14:30 | disposition home or self-care (01) ==
LOC: HO.HMCFM 13:29
PROVIDERS: PCP Nurse Practitioner Family; Visit Provider Nurse Practitioner Family
DX: R42 Dizziness and giddiness (principal); N40.0 Benign prostatic hyperplasia without lower urinary tract symptoms; R23.3 Spontaneous ecchymoses; M17.2 Bilateral post-traumatic osteoarthritis of knee; R31.21 Asymptomatic microscopic hematuria; R07.9 Chest pain, unspecified; R51.9 Headache, unspecified; H35.30 Unspecified macular degeneration; H25.9 Unspecified age-related cataract

== ENCOUNTER → 2024-10-31 13:27 | Outpatient (BNVA) | payer MEDICARE, SELFPAY | PROVIDERS: PCP Nurse Practitioner Family; Visit Provider Nurse Practitioner Family | DX: M17.2 Bilateral post-traumatic osteoarthritis of knee (principal); F90.9 Attention-deficit hyperactivity disorder, unspecified type; M54.50 Low back pain, unspecified; R00.2 Palpitations; I73.9 Peripheral vascular disease, unspecified; L40.9 Psoriasis, unspecified; R42 Dizziness and giddiness; R97.20 Elevated prostate specific antigen [PSA]; N40.0 Benign prostatic hyperplasia without lower urinary tract symptoms; R23.3 Spontaneous ecchymoses; R31.21 Asymptomatic microscopic hematuria; R07.9 Chest pain, unspecified; H51.9 Unspecified disorder of binocular movement; H35.30 Unspecified macular degeneration; H26.9 Unspecified cataract; Z87.891 Personal history of nicotine dependence | CPT/HCPCS: 99212 ==

== ENCOUNTER 2025-02-15 12:16 | Outpatient (REF) | payer MEDICARE, SELFPAY ==
[2025-02-15 17:57] LABS: Hematocrit 41.8 % (42.0-52.0); Hemoglobin 14.0 g/dl (14.0-18.0); Mean Corpuscular HGB Conc 33.5 g/dl (31.0-36.0); Mean Corpuscular Hemoglobin 30.0 pg (27.0-33.0); Mean Corpuscular Volume 89.7 fL (80.0-98.0); NRBC Abs Auto 0.000 X10*3/uL (0.0-0.012); NRBC Pct Auto 0.0 /100WBC (0.0-0.2); Platelet Count 205 X10*3/uL (160-400); Red Blood Count 4.66 X10*6/uL (4.60-5.80); White Blood Count 4.2 X10*3/uL (4.8-10.8)
[2025-02-15 18:31] LABS: Alanine Aminotransferase 22 U/L (0-40); Albumin Level 4.5 g/dL (3.5-5.0); Alkaline Phosphatase 80 U/L (39-117); Anion Gap 11 (12-20); Aspartate Amino Transferase 31 U/L (5-37); Blood Urea Nitrogen 21 mg/dL (9-16); Calcium 9.9 mg/dL (8.4-10.2); Carbon Dioxide 32 mmol/L (22-29); Chloride 104 mmol/L (96-108); Cholesterol 196 mg/dL (<200); Estimated Glomerular Filt Rate > 60; HDL Cholesterol 61 mg/dL (>40); Potassium 4.5 mmol/L (3.3-5.1); Sodium 142 mmol/L (135-145); Total Protein 7.5 g/dL (6.5-8.0); Triglycerides 113 mg/dL (<150)
[2025-02-15 18:45] LABS: Folate 14.7 ng/mL (> or = 4.0); Vitamin B12 810 pg/mL (200-900)
== END 2025-02-15 12:17 | disposition home or self-care (01) ==
LOC: HO.WFDLDS 12:16
PROVIDERS: PCP Nurse Practitioner Family; Visit Provider Nurse Practitioner Family
DX: Z23 Encounter for immunization (principal); R07.9 Chest pain, unspecified; R23.3 Spontaneous ecchymoses; M25.531 Pain in right wrist; M79.641 Pain in right hand; R51.9 Headache, unspecified; R42 Dizziness and giddiness; F43.10 Post-traumatic stress disorder, unspecified; I77.811 Abdominal aortic ectasia; I25.10 Atherosclerotic heart disease of native coronary artery without angina pectoris; Z71.85 Encounter for immunization safety counseling
CPT/HCPCS: 36415; 80053; 80061; 82607; 82746; 85027; 90471; 90472; 90656; 90715; 99212

== ENCOUNTER 2025-02-15 12:16 | Outpatient (AMB) | payer MEDICARE, SELFPAY ==
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
[2025-02-15 12:41] VITALS: BP 122/70; PULSE 63; RESP 12; TEMP 36.2; O2SAT 95; BMI 27.0
--- OUTSIDE RECORDS SUMMARY | 2025-02-15 14:29 | XMS_ITS | Encounter Summary ---
Author Organization [facility] Address [address] [place] [address] Care Team Providers Care Engraver Block Name Role Phone Physician, Pcp Unknown Primary Care Provider Kimberly vailable Encounter Details Date Type Department Care Team (Late st Contact Info) Description 10/12/2024 Lab Requisition [facility] - Main Lab [address] [facility] [place] [address] Vlad Mike MD [address] [place] [phone] Gross hematuria Social History Tobacco Use Types Packs/Day Years Used Date Smoking Tobacco: Former Smokeless Tobacco: Never Sex and Gender Information Value Date Recorded Sex Assigned at Not on file Legal Sex Male 10:15 AM EST Gender Identity Not on file Sexual Orientation Not on file documented as of this encounter Plan of Treatment Not on file documented as of this encounter Procedures Procedure Name Priority Date/Time Associated Diagnosis Comments AP OUTSIDE CONSULT Routine 10/09/2024 12 :00 AM EDT Gross hematuria documented in this encounter Results * Anatomic pathology outside consult (10/09/2024 12:00 AM EDT) Final Diagnosis A. Urine, Voided, ([id number]): Negative for high grade urothelial carcinoma. Acute inflammatory cells are present. Results of UroVysion fluorescence in situ hybridization (FISH) testing: Although FISH was performed, insufficient non-obscured hybridization signals are present for evaluation and interpretation. 10/25/2024 2:31 PM EDT [facility] Clinical Information Gross hematuria R31.0 Urine Cytology/FISH (now) 10/25/2024 2:31 PM EDT [facility] Gross Description A. Urine, Voided, ([id number]): Received one ThinPrep slide for cytology and one ThinPrep slide for UroVysion FISH 10/25/2024 2:31 PM EDT [facility] Disclaimer Unless otherwise specified, all tissue is 10% NB formalin fixed and paraffin embedded. Technical pathology services provided by [facility] at [address] [place] [address] [address], [place] [address] (CLIA #[id number]/Anca Burgos MD, Chemical Sales Representative) 10/25/2024 2:31 PM EDT [facility] Tissue Urine specimen from urethra / Unknown 10/09/2024 10/12/2024 11:29 AM EDT us Vlad Mike MD LAB PATHOLOGY ORDERABLES Final Result [facility] [address] [place] [address], documented in this encounter Visit Diagnoses Diagnosis Gross hematuria documented in this encounter Care Teams Engraver Block Relationship Specialty Start Date End Date Physician, Pcp Unknown PCP - General 10/12/24 documented as of this encounter
--- OUTSIDE RECORDS SUMMARY | 2025-02-15 14:29 | XMS_ITS | Clinical Summary ---
Author Organization [address] [facility] Address [address] [place] [address] Phone Care Team Providers Care Junior Database Administrator Name Role Phone Physician, Pcp Unknown Primary Care Provider Kimberly vailable Social History Tobacco Use Types Packs/Day Years [...] nts (1 - 1-dose 75+ series) 2022 Depression Screening 05/31/2024 Cholesterol Screening (Lipid Panel) 10/12/2024 Falls Risk Assessment 10/12/2024 Hepatitis C Screening 10/12/2024 Social Influencers of Health Screening 10/12/2024 Influenza Vaccine (#1) 2025 HIB Vaccines Aged Out No longer [...] on patient's age to complete this topic Insurance [facility] MEDICAID Care Teams Junior Database Administrator Relationship Specialty Start Date End Date Physician, Pcp Unknown PCP - General 10/12/24
== END 2025-02-15 13:41 | disposition home or self-care (01) ==
LOC: HO.HMCFM 12:17
PROVIDERS: PCP Nurse Practitioner Family; Visit Provider Nurse Practitioner Family
DX: M25.531 Pain in right wrist (principal); M79.641 Pain in right hand; R51.9 Headache, unspecified; R42 Dizziness and giddiness; F43.10 Post-traumatic stress disorder, unspecified; I77.811 Abdominal aortic ectasia; I25.10 Atherosclerotic heart disease of native coronary artery without angina pectoris; Z23 Encounter for immunization; Z71.85 Encounter for immunization safety counseling

== ENCOUNTER 2025-02-20 10:26 | Outpatient (REF) | payer MEDICARE, SELFPAY ==
--- NOTE | ~2025-02-20 | XR_ITS ---
EXAMINATION: XR WRIST, RIGHT CLINICAL INFORMATION: M25.531 - Pain in right wrist COMPARISON: None available. TECHNIQUE: PA, lateral, and oblique views of the right wrist. FINDINGS: No acute cortical disruption or malalignment. No lytic or blastic lesions. No soft tissue calcifications. No osteolysis. No subcutaneous edema. XR/XR wrist RT min 3V IMPRESSION: No acute fracture or dislocation. No gross degenerative changes. Electronically signed by: Branden Loya MD 02/20/2025 11:12 AM EDT
--- NOTE | ~2025-02-20 | XR_ITS ---
EXAMINATION: XR HAND, RIGHT CLINICAL INFORMATION: M25.531 - Pain in right wrist COMPARISON: None available. TECHNIQUE: PA, lateral, and oblique views of the right hand. FINDINGS: Asymmetric joint space narrowing involving the proximal distal interphalangeal joints of the digits pronounced on the fourth and fifth digits. No acute cortical disruption or malalignment. No lytic or blastic lesions. No soft tissue calcifications. No subcutaneous emphysema. XR/XR hand RT min 3V IMPRESSION: Mild to moderate osteoarthritis/osteoarthrosis. Electronically signed by: Branden Loya MD 02/20/2025 11:08 AM EDT
--- OUTSIDE RECORDS SUMMARY | 2025-02-20 12:46 | XMS_ITS | Encounter Summary ---
Author Organization [facility] Address [address] [place] [address] Care Team Providers Care Cleaner And Polisher Name Role Phone Physician, Pcp Unknown Primary Care Provider Kimberly vailable Encounter Details Date Type Department Care Team (Late st Contact Info) Description 10/12/2024 Lab Requisition [facility] - Main Lab [address] [facility] [place] [address] Vlad Mike MD [address] [place] [phone] Gross hematuria Social History Tobacco Use Types [...] AM EDT) Final Diagnosis A. Urine, Voided, ([id number]): Negative for high grade urothelial carcinoma. Acute inflammatory cells are present. Results of UroVysion fluorescence in situ hybridization (FISH) testing: Although FISH was performed, insufficient non-obscured hybridization signals are present for evaluation and interpretation. 10/25/2024 2:31 PM EDT [facility] Clinical Information Gross hematuria R31.0 Urine Cytology/FISH (now) 10/25/2024 2:31 PM EDT [facility] Gross Description A. Urine, Voided, ([id number]): Received one ThinPrep slide for cytology and one ThinPrep slide for UroVysion FISH 10/25/2024 2:31 PM EDT [facility] Disclaimer Unless otherwise specified, all tissue is 10% NB formalin fixed and paraffin embedded. Technical pathology services provided by [facility] at [address] [place] [address] [address], [place] [address] (CLIA #[id number]/Anca Burgos MD, Associate Creative Director) 10/25/2024 2:31 PM EDT [facility] Tissue Urine specimen from urethra / Unknown 10/09/2024 10/12/2024 11:29 AM EDT us Vlad Mike MD LAB PATHOLOGY ORDERABLES Final Result [facility] [address] [place] [address], documented in this encounter Visit Diagnoses Diagnosis Gross hematuria documented in this encounter Care Teams Cleaner And Polisher Relationship Specialty Start Date End Date Physician, Pcp Unknown PCP - General 10/12/24 documented as of this encounter
--- OUTSIDE RECORDS SUMMARY | 2025-02-20 12:46 | XMS_ITS | Clinical Summary ---
Author Organization [address] [facility] Address [address] [place] [address] Phone Care Team Providers Care Chair Frame Builder Name Role Phone Physician, Pcp Unknown Primary [...] patient's age to complete this topic Insurance [facility] MEDICAID Care Teams Chair Frame Builder Relationship Specialty Start Date End Date Physician, Pcp Unknown PCP - General 10/12/24
== END 2025-02-20 10:27 | disposition home or self-care (01) ==
LOC: HO.HHCX 10:26
PROVIDERS: PCP Nurse Practitioner Family; Visit Provider Nurse Practitioner Family
DX: M25.531 Pain in right wrist (principal); M79.641 Pain in right hand
CPT/HCPCS: 73110; 73130

== ENCOUNTER → 2025-02-20 10:31 | Outpatient (BNV) | payer MEDICARE, SELFPAY | PROVIDERS: PCP Nurse Practitioner Family; Visit Provider Radiology Diagnostic Radiology | DX: M25.531 Pain in right wrist (principal) | CPT/HCPCS: 73110; 73130 ==

== ENCOUNTER 2025-04-18 12:16 | Outpatient (AMB) | payer MEDICARE, SELFPAY ==
--- NOTE | 2025-04-18 12:18 | A.OFFPC_ITS ---
Vital Signs 3 04/18/25 12:24 04/18/25 13:07 Height 5 ft 10 in Weight 187 lb 6 oz BMI 26.9 BP 110/58 L Blood Pressure Location Lt brachial Position Sitting Respiration 16 Pulse 99 60 Pulse Source Pulse Oximeter Auscultation Temp 97.5 F Temp Source Oral Pulse Oximetry (%) 99 Oxygen Delivery Method Room Air Intake Visit Reasons: 2 months 30 min complex routine fu Intake Note: patient her for 2 month 30 min complex routine f/u Manager Pacu Required: No Allergies narcotics Allergy (Intermediate, Uncoded 04/18/25 12:45) Unknown Medication List - Last Reconciled 04/18/25 by Sindi Romero, MARINE REPORTER- alfuzosin ER mg PO DAILY finasteride mg PO DAILY [PRESERVISION PO] Tobacco use date assessed: 04/18/25 Fall risk assessment: No Falls in past year Last assessed Fall Risk: 04/18/25 Dental Screening Dental Screen Date: 04/18/25 Did you have a dental visit in the last 12 months?: Yes Did you have a dental problem in the last 6 months where you did not have access to dental care?: No Was dental information given to patient?: Patient has dentist HPI HPI Comments 2 History of Present Illness0 Details 80 y/o M with headaches, bruising, PTSD, hx of lymphoma, chronic low back pain s/p injury age 35, heart murmur, psoriasis, PVD, former smoker, macular degeneration, cataracts bilat SurgHx: L inguinal hernia repair, R shoulder surgery, appendectomy, R CTS repair FHx: Social History - Lives alone, frequently engages in out door activities including albin chi, walking, bicycling, canoeing, and weightlifting at the [facility]. 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 - Prior smoker, quit approximately 20 ye ars ago. Health Maintenance: Colon: colon FIT test negative 06/01/23 Vaccines: PCV 2023,PCV 2022, RSV 2023, shingles UTD, Tdap 02/15/25, Flu 02/15/25 AAA screen: EKG: [place] of Care: Urology Dr Mike, appt a few weeks ago, will be getting testing done Ortho - Dr Enrique and Dr Elaine Optho appt next week declined treatment at this time Counseling [facility] [place]. [place] [facility] Visual Acuity: wears glasses Hearing Screening: wears hearing aides ACP: HCP and DIORST completed Dietary/Nutrition/Exercise Edu provided: Y History of Present Illness The patient is a 80-year-old male presenting for a 2-month follow-up to discuss new-onset shortness of breath and a skin lesion on his ear. Dyspnea on exertion: - The patient reports new-onset episodes of shortness of breath and lightheadedness. - Symptoms are specifically triggered wh en carrying heavy weight while climbing a steep set of stairs at his home. - He is asymptomatic during other forms of exercise, including walking, cycling, and weightlifting at the gym. - He has a scheduled cardiology appointm ent with Dr. Briseno in July for further evaluation. Skin lesion: - The patient reports a lesion on his ri ght ear. - He notes that he periodically picks at the area, which may be a scab, and it subsequently seems to grow back. - Has been presents for months, maybe ev en years Mental health: - The patient is currently seeing a ther apist, which he finds beneficial. - He reports that therapy has helped him get back into weightlifting and activities he had not pursued in 10 years. Health Maintenance: - The patient's cholesterol is improved, with a total noted as , which he attributes to diet and exercise. - He has recently increased his physical activity, including walks up to 2.5 miles, cycling, and weightlifting. - Immunizations are up to date, with no further vaccines needed until the fall of 2025. Past Medical History - History of anxiety, currently managed with therapy. Review of Systems - Cardiovascular: Reports dyspnea and li ghtheadedness on heavy exertion while climbing stairs. - Respiratory: Reports shortness of eveilo th when carrying heavy weight up an incline. - Integumentary: Reports a lesion on his right ear that he can pick at, which may be a scab that reforms. - Psychiatric: Reports improved emotiona l well-being since beginning therapy. Physical Exam Awake alert NAD PERRLA 2/6 murmur, RRR LS CTAB No edema BLE Varicose veins ble Psoriasis R knee, R elbow Psych: Mood and affect appropriate. Patient is seeing a therapist and reports feeling well emotionally. Medical Decision Making The patient is a 80-year-old male presenting for a 2-month follow-up with complaints of exertional dyspnea and a right ear skin lesion. The dyspnea is specifically triggered by carrying heavy items while climbing stairs, which is a new symptom. Given the specific nature of this symptom, a cardiac etiology must be considered, and his upcoming cardiology consultation in July is appropriate. The second issue is the skin lesion on his right scalp. The differential includes seborrheic dermatitis and basal cell carcinoma. The management plan is to initiate a trial of a topical prescription for seborrheic dermatitis. If the lesion fails to resolve, a dermatology referral for possible biopsy will be made. Overall, the patient is doing very well, with notable improvements in his physical activity and emotional well-being since initiating therapy. Vitals are stable, and immunizations are current. We will continue with bimonthly follow-up appointments, with the next scheduled after his cardiology evaluation. Plan 1. Dyspnea On Exertion - The patient's symptom of shortness of breath occurs specifically when carrying heavy items while climbing stairs. - He has a scheduled cardiology appointm ent in July to evaluate this symptom. - Await cardiology's assessment and magdalena mmendations before further action. 2. Skin Lesion, Right scalp - Differential diagnosis for the lesion includes seborrheic dermatitis and basal cell carcinoma. - Will initiate a trial of a prescriptio n medication indicated for seborrheic dermatitis. - If the lesion resolves, the diagnosis is confirmed. - If the lesion does not improve, the pa tient will be referred to a hydraulic rockbreaker operator for further evaluation, which may include a biopsy. - Has can also use OTC selsun blue shamp oo 3. Health Maintenance - Continue therapy as it has shown signi ficant benefit to the patient's well- being. - The patient's immunizations are up to date and no vaccines are due until fall 2025. - Continue bimonthly follow-up appointme nts per his request - Schedule the next appointment for late July, after the cardiology visit, for AWV. Patient Instructions - Please keep your cardiology appointmen t in July to investigate the shortness of breath you experience. - I am sending a prescription for a crea m to your pharmacy. Please apply it to the spot on your right ear as directed. - If the spot on your ear does not get b ursula with the cream, we will need to have a accounting software specialist (hydraulic rockbreaker operator) look at it. - You are all up to date on your shots. You will not need any more until the fall. - Please continue your current exercise routine, as you are able. Consent No procedures requiring informed consent were performed during this visit. Patient was informed and verbally consented to the use of an ambient scribe for clinic note documentation during this visit. Total time spent caring for the patient today was 30 minutes. This includes time spent before the visit reviewing the chart, time spent during the visit, and time spent after the visit on documentation, reviewing laboratory results, diagnostic imaging, medications, performing a medically necessary evaluation, counseling on diagnoses, care coordination, ordering appropriate tests, ordering appropriate medications, review of tests performed by other providers, reporting test results with the patient, communication with other healthcare providers. [facility] Medical History (Updated 04/18/25 @ 13:06 by FABIAN RodriguezALESSANDRO) Arthritis Diverticulosis GERD (gastroesophageal reflux disease) Hernia Hiatal hernia Lymphoma Nephrolithiasis Prostate troubles Psoriasis PTSD (post-traumatic stress disorder) Spine disorder Umbilical hernia Surgical History (Updated 04/17/25 @ 07:19 by RAJEEV Rodriguez) History of appendectomy History of carpal tunnel surgery Family History (Updated 08/08/24 @ 13:35 by Bria Frank MA) Father Substance abuse Maternal Grandfather Substance abuse Sister Substance abuse Mother Mental health disorder Social History (Updated 08/08/24 @ 13:27 by Bria Frank MA) Household Members: None Both parents involved: No Caregiver staying overnight: No Housing: Other (mobile home) Housing Other:: mobile home Are you a primary care director to a significant other at home: No Do you presently have visiting nurse or other home services: Yes (once a year) 75 years or older and lives alone: No Alcohol intake: current Alcohol intake frequency: a few times a month Patient Tobacco Use Status: Never used Tobacco e-Cigarette/Vaping Use: Never Used Second Hand Smoke Exposure: No service: No Current occupational status: retired Cognitive needs: No Hearing needs: Yes (hearing aid) Vision needs: Yes (wear glasses) Questionnaire Thrive Questionnaire Date Thrive assessed: 08/02/24 I am a: Patient What is your living situation today?: I have a steady place to live Within the past 12 months, did the food you bought not last and you didn't have the money to get more?: Never true Within the past 12 months, did you worry whether your food would run out before you got money to buy more?: Never true Do you have trouble paying for medicines?: No Do you have trouble getting transportation to medical appointments?: No Do you have trouble paying your heating and electricity bill?: No Do you have trouble taking care of your child, family member or friend?: No Do you have trouble with day-to-day activities such as bathing, preparing meals, shopping, managing finances, etc.?: No Are you currently unemployed and looking for a job?: I choose not to answer this question Are you interested in more education?: No Please select the resources that you would like help with: None Currently or been in a relationship where the following occur: Controlled Emotionally THRIVE Score: 1 NISHANT-7 AMB Questionnaire NISHANT-7 Date NISHANT - 7 assessed: 09/05/24 Source: Developed by Drs. Sp Rodriguez, Kelsey Goins, Zion Hilario and colleagues, with an educational alfred from [email or web address]. Physical exam (Primary Care) Vital Signs: Last Vital Signs Temp 97.5 F 04/18/25 12:24 Pulse 60 04/18/25 13:07 Resp 16 04/18/25 12:24 BP 110/58 L 04/18/25 12:24 Pulse Ox 99 04/18/25 12:24 Oxygen Delivery Method Room Air 04/18/25 12:24 BMI result Body Mass Index 26.9 Tobacco/Smoking Status: Tobacco use Status Tobacco use date assessed 04/18/25 04/18/25 12:28 Patient Tobacco Use Status Never used Tobacco 04/18/25 12:28 e-Cigarette/Vaping Use Never Used 04/18/25 12:28 Thrive Assessment: Date of Thrive Assessment Date Thrive assessed 08/02/24 04/18/25 12:28 Currently or been in a relationship where the following occur: Controlled Emotionally HENMT Head images: 2 1. raised keratotic ng/yellow lesion Coding Level of Care Code Est Pt Level 4 (94405) Complex EM visit Add On G2211 Diagnoses POPE (dyspnea on exertion) R06.09 Seborrheic dermatitis of scalp L21.9 Heart murmur on physical examination R01.1 Immunization counseling Z71.85 Assessment & Plan Assessment & Plan (1) POPE (dyspnea on exertion): Code(s): R06.09 - Other forms of dyspnea Category: Medical (2) Seborrheic dermatitis of scalp: Code(s): L21.9 - Seborrheic dermatitis, unspecified Category: Medical (3) Heart murmur on physical examination: Code(s): R01.1 - Cardiac murmur, unspecified Category: Medical (4) Immunization counseling: Code(s): Z71.85 - Encounter for immunization safety counseling Category: Medical Plan . Medications: New 2 ketoconazole 2% 1 appl topical BID 60 grams 2RF
[2025-04-18 12:24] VITALS: BP 110/58; PULSE 99; RESP 16; TEMP 36.4; O2SAT 99; BMI 26.9
[2025-04-18 13:07] VITALS: PULSE 60
== END 2025-04-18 13:13 | disposition home or self-care (01) ==
LOC: HO.HMCFM 12:18
PROVIDERS: PCP Nurse Practitioner Family; Visit Provider Nurse Practitioner Family
DX: R06.09 Other forms of dyspnea (principal); L21.9 Seborrheic dermatitis, unspecified; R01.1 Cardiac murmur, unspecified; Z71.85 Encounter for immunization safety counseling

== ENCOUNTER → 2025-04-18 12:16 | Outpatient (BNVA) | payer MEDICARE, SELFPAY | PROVIDERS: PCP Nurse Practitioner Family; Visit Provider Nurse Practitioner Family | DX: Z71.85 Encounter for immunization safety counseling (principal); R06.09 Other forms of dyspnea; R01.1 Cardiac murmur, unspecified; L21.9 Seborrheic dermatitis, unspecified | CPT/HCPCS: 99212 ==